=== PATIENT | male | born 1970 | race Caucasian/White ===

== ENCOUNTER 2025-05-15 02:39 | Emergency (ER) | payer SELFPAY ==
[2025-05-15 03:03] VITALS: TEMP 98; O2SAT 98
--- NOTE | 2025-05-15 03:34 | ERPHSYRPT ---
- History of Present Illness Time Seen by Provider: 05/15/25 03:20 Source: patient Exam Limitations: no limitations Patient Subjective Stated Complaint: pt reports intermittent nose bleed beginning last evening around 6pm. pt denies any recent trauma or anti- coagulant. Triage Nursing Assessment: pt is aox3, pupils perrl, afebrile, pt nose is actively bleeding, nose clamp applied during exam, resps easy non labored, cap refill < 3 seconds, radial pulses strong and equal, pt skin pink warm dry. Physician History: Patient is a 54-year-old male history of hypertension depression current smoker presents to our ED for evaluation of epistaxis. Patient states nosebleed started at approximately 6 PM. No trauma. Patient denies history of anticoagulation use. Patient states bleeding spontaneously stopped shortly after it started at 6 PM. Bleeding reoccurred just prior to arrival to our ED. Upon arrival to our ED a nasal clamp was applied. Patient otherwise feels well. He voices no other complaints or concerns at this time. Portions of this note were created with voice recognition technology. There may be grammatical, spelling, punctuation or sound alike errors Timing/Duration: today Severity: moderate Modifying Factors: Improves With: nothing Associated Symptoms: denies symptoms Allergies/Adverse Reactions: No Known Drug Allergies Allergy (Verified 05/15/25 03:04) Home Medications: No Reportable Medications [No Reported Medications] 05/15/25 [History] Hx Tetanus, Diphtheria Vaccination/Date Given: Yes Hx Influenza Vaccination/Date Given: No Hx Pneumococcal Vaccination/Date Given: No Immunizations Up to Date: Yes Travel Risk - International Travel Have you traveled outside of the country in past 3 weeks: No - Emerging Infectious Disease Are you exhibiting symptoms associated with any current EIDs: No - Review of Systems All Other Systems: Reviewed and Negative - Past Medical History Pertinent Past Medical History: Yes Cardiac History: Hypertension Psycho-Social History: Depression - Past Surgical History Past Surgical History: Yes Musculoskeletal: Orthopedic Surgery Other Surgical History: finger - Social History Smoking Status: Current every day smoker How long have you smoked: 20 Exposure to second hand smoke: Yes Drug Use: none - Social Determinants of Health Will the patient participate in the screening: Yes Do you worry about a steady place to live?: No Do you have any problems with any of the following?: No known problems In the past 12 months,have you had to go without utilities?: No Transportation Issues: No Has anyone in your support network made you feel unsafe?: No Have you or anyone in your house had to go w/o enough food: No - Nursing Vital Signs Nursing Vital Signs: Initial Vital Signs Temperature 98 F 05/15/25 02:51 Pulse Rate 64 05/15/25 02:51 Respiratory Rate 20 05/15/25 02:51 Blood Pressure 209/95 05/15/25 02:51 O2 Sat by Pulse Oximetry 98 05/15/25 02:51 Pain Scale Pain Intensity 0 - Physical Exam General Appearance: no apparent distress, alert Eye Exam: PERRL/EOMI Ears, Nose, Throat Exam: normal ENT inspection, moist mucous membranes Neck Exam: normal inspection, full range of motion Respiratory Exam: normal breath sounds, lungs clear, airway intact, No respiratory distress Cardiovascular Exam: regular rate/rhythm, normal heart sounds, normal peripheral pulses Gastrointestinal/Abdomen Exam: soft, normal bowel sounds, No tenderness, No mass Back Exam: normal inspection, normal range of motion, No CVA tenderness, No vertebral tenderness Extremity Exam: normal inspection Neurologic Exam: alert, oriented x 3, cooperative, normal mood/affect, sensation nml, No motor deficits Skin Exam: normal color, warm, dry, No rash Lymphatic Exam: No adenopathy SpO2 Interpretation: normal SpO2: 98 O2 Delivery: Room Air - Course Nursing assessment & vital signs reviewed: Yes Ordered Tests: Medication Summary Discontinued Medications Generic Name Dose Route Start Last Admin Trade Name Freq PRN Reason Stop Dose Admin TRANEXAMIC ACID IN NACL,ISO-OS 1,000 mg in 100 mls @ 600 mls/hr 05/15/25 03:59 05/15/25 04:08 Tranexamic 1,000 Mg/100ml-Nacl IV 05/15/25 04:08 600 mls/hr ONCE ONE 600 mls/hr Administration Phenylephrine HCl Confirm 05/15/25 03:42 Neosynephrine 0.5% Nasal Ben Bolt/Drops Administered 05/15/25 03:43 Dose 15 ml .ROUTE .STK-MED ONE Phenylephrine HCl 15 ml 05/15/25 03:41 05/15/25 03:44 Neosynephrine 0.5% Nasal Ben Bolt/Drops NS 05/15/25 03:42 15 ml STAT ONE Administration Tranexamic Acid Confirm 05/15/25 03:58 Tranexamic Acid 1000 Mg/10 Ml Vial/Amp Administered 05/15/25 03:59 Dose 1,000 mg .ROUTE .Double R Group-MED ONE - Progress Progress: improved Progress Note: Patient is a 54-year-old male history of hypertension depression current smoker presents to our ED for evaluation of epistaxis. Patient states nosebleed started at approximately 6 PM. No trauma. Patient denies history of anticoagulation use. Patient states bleeding spontaneously stopped shortly after it started at 6 PM. Epistaxis primarily from the right nare. Upon arrival we applied a nasal clamp. Nasal clamp was removed. Patient began to bleed. Atomized phenylephrine administered. Patient later began to bleed. TXA packing applied. Bleeding resolved transiently. Patient observed. Bleeding reoccurred. 7.5 cm Rhino Rocket inserted into the right nare. Patient discharged home with a nasal clamp. Patient agrees to follow-up with his primary care doctor within 48 hours for reevaluation. He voices no other complaints or concerns at this time. Portions of this note were created with voice recognition technology. There may be grammatical, spelling, punctuation or sound alike errors History obtained from patient Differential diagnosis anterior nosebleed, posterior nosebleed, septal perfo ration, hemangioma, thrombocytopenia Complexity of problems addressed is moderate acute complicated. No critical care time. Complexity of data reviewed and analyzed is none. Diagnosis made based on history and physical exam. No specialized testing ordered. Risk of complication and or risk of morbidity/mortality of patient management is low. Vital stable. Time spent to discharge patient is approximately 15 minutes. Plan of care established for shared decision making. No social determinants of health present to impede follow-up. Portions of this note were created with voice recognition technology. There may be grammatical, spelling, punctuation or sound alike errors 05/15/25 03:34 Counseled pt/family regarding: diagnosis, need for follow-up - Departure Departure Disposition: Home Clinical Impression: Epistaxis Condition: Stable Critical Care Time: No Referrals: DOCTOR,NO FAMILY [Primary Care Provider, UNKNOWN] - Follow up/PCP as directed PRATIMA FRAUSTO DO [ACTIVE STAFF, FAMILY PRACTICE] - Follow up/PCP as directed Additional Instructions: Please follow-up with ENT doctor within 48 hours for reevaluation. Or return to our ED in 48 hours to have your Rhino Rocket removed Discharge/Care Plan STEVEN GAMBINO was seen on 05/15/25 in the Emergency Room. The patient was counseled regarding Diagnosis,Lab results, Imaging studies, need for follow up and when to return to the Emergency Room. Prescriptions given: Discharge Note I have spoken with the patient and/or caregivers. I have explained the patient's condition, diagnosis and treatment plan based on the information available to me at this time. I have answered the patient's and/or caregiver's questions and addressed any concerns. The patient and/or caregivers have as good understanding of the patient's diagnosis, condition and treatment plan as can be expected at this point. The vital signs have been stable. The patient's condition is stable and appropriate for discharge from the emergency department. The patient will pursue further outpatient evaluation with the primary care ph ysician or other designated or consulting physician as outlined in the discharge instructions. The patient and/or caregivers are agreeable to this plan of care and follow-up instructions have been explained in detail. The patient and/or caregivers have received these instruction. The patient/and or caregivers are aware that any significant change in condition or worsening of symptoms should prompt an immediate return to this or the closest emergency department or call 911.
[2025-05-15] MEDS ORDERED: NEOSYNEPHRINE 0.5% NASAL SPRAY/DROPS ONE (03:42)
[2025-05-15] MEDS: NEOSYNEPHRINE 0.5% NASAL SPRAY/DROPS NS ONE (03:44)
[2025-05-15] MEDS ORDERED: TRANEXAMIC ACID 1000 MG/10 ML ONE (03:58)
[2025-05-15] MEDS: TRANEXAMIC 1,000 MG/100ML-NACL 1,000 MG/100 ML PIGGYBACK IV ONE (04:08)
[2025-05-15 05:27] VITALS: BP 169/89; PULSE 61; RESP 19
== END 2025-05-15 05:39 | disposition home or self-care (01) ==
LOC: ED 02:39
DX: R04.0 Epistaxis (principal); I10 Essential (primary) hypertension; Z72.0 Tobacco use